=== PATIENT | female | born 1995 | race Caucasian/White ===

== ENCOUNTER 2018-09-16 13:05 | Emergency (ER) | payer OTHER ==
--- NOTE | 2018-09-16 13:11 | UC ---
General HPI - HPI Summary HPI Summary: 23 yo female presents requesting medication refill. She tells me that she has been on Effexor for the last 2 years. She is currently a student truck driver at [employer] and their pharmacy is closed for the holiday week and she is out of medication. She takes her effexor for anxiety and depression. She feels well with this. Denies SI/HI. Denies headache, abdominal pain, n/v. - History of Current Complaint Stated Complaint: MED REFILL Time Seen by Provider: 09/16/18 13:11 Hx Obtained From: Patient Current Severity: None - Allergy/Home Medications Allergies/Adverse Reactions: Allergies Allergy/AdvReac Type Severity Reaction Status Date / Time No Known Allergies Allergy Verified 09/16/18 13:18 PMH/Surg Hx/FS Hx/Imm Hx Psychological History: Anxiety, Depression - Surgical History Surgical History: None - Family History Known Family History: Positive: None - Social History Occupation: Student Lives: Alone Alcohol Use: Occasionally Substance Use Type: None Smoking Status (MU): Never Smoked Tobacco Review of Systems All Other Systems Reviewed And Are Negative: Yes Constitutional: Positive: Negative Skin: Positive: Negative Respiratory: Positive: Negative Cardiovascular: Positive: Negative Gastrointestinal: Positive: Negative Neurovascular: Positive: Negative Musculoskeletal: Positive: Negative Neurological: Positive: Negative Psychological: Positive: Anxious Physical Exam - Summary Physical Exam Summary: GENERAL: NAD. WDWN. No pain distress. SKIN: No rashes, sores, lesions, or open wounds. NECK: Supple. Nontender. No lymphadenopathy. CHEST: CTAB. No r/r/w. No accessory muscle use. Breathing comfortably and in no distress. CV: RRR. Without m/r/g. Pulses intact. NEURO: Alert. PSYCH: Age appropriate behavior. Triage Information Reviewed: Yes Vital Signs: Vital Signs: Temp Pulse Resp BP Pulse Ox 97.8 F 100 14 113/83 100 09/16/18 13:14 09/16/18 13:14 09/16/18 13:14 09/16/18 13:14 09/16/18 13:14 Vital Signs Reviewed: Yes Course/Dx - Course Course Of Treatment: She has been feeling well with Effexor and has been stable with this for 2 years, thus will refill this for her today and [facility]. - Diagnoses Provider Diagnosis: Anxiety Discharge - Sign-Out/Discharge Documenting (check all that apply): Patient Departure All imaging exams completed and their final reports reviewed: No Studies - Discharge Plan Condition: Stable Disposition: HOME Prescriptions: Venlafaxine CAP (NF) [Effexor CAP (NF)] 75 mg PO DAILY #30 tab Referrals: No Primary Care Phys,NOPCP [Primary Care Provider] - Additional Instructions: If you develop a fever, shortness of breath, chest pain, new or worsening symptoms - please call your PCP or go to the ED. Please follow up with [facility] when you return from break - Billing Disposition and Condition Condition: STABLE Disposition: Home
== END 2018-09-16 13:35 | disposition home or self-care (01) ==
LOC: UCEAST 13:05
DX: Z76.0 Encounter for issue of repeat prescription (principal); F41.9 Anxiety disorder, unspecified; Z79.899 Other long term (current) drug therapy
CPT/HCPCS: 99202; G0463